=== PATIENT | female | born 1955 | race Caucasian/White ===

== ENCOUNTER 2022-11-25 07:10 | Outpatient (CLI) | payer BC, MEDICARE | END 2022-11-25 07:11 | disposition home or self-care (01) | LOC: CSHLAB 07:10 | PROVIDERS: ATTEND Obstetrics & Gynecology | DX: Z01.818 Encounter for other preprocedural examination (principal); N81.6 Rectocele | CPT/HCPCS: 80048; 85027; 86850; 86900; 86901; 93005; 93010 ==

== ENCOUNTER 2022-11-29 07:53 | Observation (INO) | payer BC ==
[2022-11-25 08:20] LABS: Hemoglobin 12.1 g/dL (12.0-15.5); Mean Corpuscular HGB CONC 32.6 g/dL (32.0-36.0); Mean Corpuscular Hemoglobin 27.8 pg (27.0-33.0); Mean Corpuscular Volume 85.1 fl (81.6-98.3); Mean Platelet Volume 9.8 fl (7.4-10.4); Platelet Count 314 10x3/uL (150-450); RBC Distribution Width 13.6 % (11.5-14.5); Red Blood Cell (RBC) Count 4.36 10x6/uL (3.90-5.03); White Blood Cell (WBC) Count 6.5 10x3/uL (3.5-10.5)
[2022-11-25 08:27] LABS: Anion Gap 13 mmol/L (10-20); BUN (Urea Nitrogen) 15 mg/dL (9.8-20.1); Calc. Creatinine Clearance 0 mL/min (70-130); Calcium 8.8 mg/dL (7.8-10.44); Carbon Dioxide 26 mmol/L (23-31); Chloride 107 mmol/L (98-107); Estimated GFR 99; Glucose 83 mg/dL (80-115); Potassium 3.8 mmol/L (3.5-5.1); Sodium 142 mmol/L (136-145)
[2022-11-25 11:16] VITALS: BMI 27.4
[2022-11-29] MEDS ORDERED: PROPOFOL 20 ML ONE (08:56)
[2022-11-29] MEDS ORDERED: Lidocaine 1% w/Epinephrine 1:200K 30 ML VIAL ONE (09:39)
[2022-11-29] MEDS ORDERED: Fentanyl 100 MCG/2 ML VIAL ONE (09:42)
[2022-11-29] MEDS ORDERED: CEFAZOLIN 2 GM VIAL ONE (09:48)
[2022-11-29 10:06] LABS: SARS-CoV-2 NAA Rapid Test DETECTED (NotDetected)
[2022-11-29] MEDS ORDERED: ePHEDrine Sulfate 50 MG/10 ML VIAL ONE (10:18)
[2022-11-29] MEDS ORDERED: Ketorolac Tromethamine 30 MG/ML VIAL ONE (10:32)
[2022-11-29] MEDS ORDERED: Dexamethasone 4 mg/ml Vial ONE (10:32)
[2022-11-29] MEDS ORDERED: Ondansetron PF 4 MG/2 ML Vial ONE (10:32)
[2022-11-29] MEDS ORDERED: Fentanyl 100 MCG/2 ML VIAL SLOW IVP PRN (12:19)
[2022-11-29] MEDS ORDERED: Ondansetron HCl/PF 8 MG in Sodium Chloride 0.9% 50 ML IVPB PRN (12:19)
[2022-11-29] MEDS ORDERED: HYDROcodone/Acetaminophen 5/325 mg Tablet PO PRN ×2 (12:20→12:21)
[2022-11-29] MEDS ORDERED: Ibuprofen 600 MG TAB PO PRN (12:22)
[2022-11-29] MEDS ORDERED: Acetaminophen 500 MG TAB PO PRN (12:24)
[2022-11-29] MEDS: metFORMIN 500 MG TAB PO SCH (17:17)
[2022-11-29] MEDS ORDERED: HumaLOG 300 UNITS/3 ML VIAL SC PRN (18:26)
[2022-11-29] MEDS: Docusate Calcium (SURFAK) 240 MG CAP PO SCH (20:32)
[2022-11-30] MEDS ORDERED: Levothyroxine Sodium 100 MCG TAB PO SCH (06:00)
[2022-11-30] MEDS: metFORMIN 500 MG TAB PO SCH (08:06)
[2022-11-30] MEDS: Docusate Calcium (SURFAK) 240 MG CAP PO SCH (08:07)
[2022-11-30] MEDS ORDERED: Losartan Potassium 50 MG TAB PO SCH (09:00)
[2022-11-30] MEDS ORDERED: Aspirin 81 mg Enteric Coated Tablet PO SCH (09:00)
[2022-11-30] MEDS ORDERED: Atorvastatin Calcium 20 MG TAB PO SCH (09:00)
[2022-11-30] MEDS ORDERED: Lantus 1000 UNITS/10 ML VIAL SC SCH (09:00)
[2022-11-30 10:44] VITALS: BP 127/62; TEMP 98.4
[2022-11-30] MEDS ORDERED: SEMAGLUTIDE SC SCH (15:00)
== END 2022-11-30 09:00 | disposition home or self-care (01) ==
LOC: CSHSDC 07:53 → CSHPED 12:13 → INTOOBSV 12:13
PROVIDERS: ADMIT Obstetrics & Gynecology; ATTEND Obstetrics & Gynecology
PROC: 0JQC0ZZ Repair Pelvic Region Subcutaneous Tissue and Fascia, Open Approach (ICD-10-PCS; principal; 2022-11-29)
DX: N81.6 Rectocele (principal); U07.1 COVID-19; I10 Essential (primary) hypertension; E11.9 Type 2 diabetes mellitus without complications; E03.9 Hypothyroidism, unspecified; E78.5 Hyperlipidemia, unspecified; J45.909 Unspecified asthma, uncomplicated; Z79.4 Long term (current) use of insulin; Z79.899 Other long term (current) drug therapy; Z91.040 Latex allergy status; Z88.8 Allergy status to other drugs, medicaments and biological substances
CPT/HCPCS: 36415; 80048; 85027; 86850; 86900; 86901; J1100; J1885; J2405; J2704; J3010; U0002